=== PATIENT | female | born 1955 | race Caucasian/White ===

== ENCOUNTER 2021-05-24 07:00 | Outpatient (CLI) | payer BC ==
[2021-05-24 10:15] LABS: Hemoglobin 12.3 g/dL (12.0-15.5); Mean Corpuscular HGB CONC 32.3 g/dL (32.0-36.0); Mean Corpuscular Hemoglobin 30.4 pg (27.0-33.0); Mean Corpuscular Volume 94.1 fl (81.6-98.3); Mean Platelet Volume 9.5 fl (7.4-10.4); Platelet Count 229 10x3/uL (150-450); RBC Distribution Width 14.4 % (11.5-14.5); Red Blood Cell (RBC) Count 4.05 10x6/uL (3.90-5.03); White Blood Cell (WBC) Count 8.2 10x3/uL (3.5-10.5)
[2021-05-24 10:16] LABS: MDiff Complete? YES
[2021-05-24 10:17] LABS: ALT (SGPT) 49 U/L (8-55); AST (SGOT) 29 U/L (5-34); Albumin 4.4 g/dL (3.4-4.8); Anion Gap 16 mmol/L (10-20); BUN (Urea Nitrogen) 15 mg/dL (9.8-20.1); Bilirubin, Direct 0.1 mg/dL (0.1-0.3); Bilirubin, Total 0.4 mg/dL (0.2-1.2); Calc. Creatinine Clearance 0 mL/min (70-130); Carbon Dioxide 23 mmol/L (23-31); Chloride 106 mmol/L (98-107); Glucose 93 mg/dL (80-115); Potassium 4.5 mmol/L (3.5-5.1); Protein, Total 7.5 g/dL (5.8-8.1); Sodium 140 mmol/L (136-145)
[2021-05-24 10:20] LABS: Eosinophils 11 % (0-10); Lymphocytes 37 % (21-51); Monocytes 3 % (0-10); Neutrophil 48 % (42-75); Reactive Lymphocytes 1 % (0-10)
[2021-05-24 10:22] LABS: Platelet Morphology Comment Appears Adequate; RBC Morphology Normal
[2021-05-24 11:34] LABS: Calcium 9.8 mg/dL (7.8-10.44)
[2021-05-24 11:36] LABS: Alkaline Phosphatase 110 U/L (40-110)
== END 2021-05-24 07:01 | disposition home or self-care (01) ==
LOC: LABBT 07:00
PROVIDERS: ATTEND Surgery
DX: Z01.812 Encounter for preprocedural laboratory examination (principal); K80.20 Calculus of gallbladder without cholecystitis without obstruction
CPT/HCPCS: 80048; 80076; 85025

== ENCOUNTER 2021-05-27 09:48 | Day surgery (SDC) | payer BC ==
[2021-05-26 15:15] VITALS: BMI 27.6
[2021-05-27] MEDS ORDERED: Lidocaine 1% w/Epinephrine 1:100K 20 ML VIAL ONE (10:31)
[2021-05-27] MEDS ORDERED: Bupivacaine 0.25% HCL 30 ML VIAL ONE (10:31)
[2021-05-27] MEDS ORDERED: Fentanyl 100 MCG/2 ML VIAL ONE ×2 (11:28→13:51)
[2021-05-27] MEDS ORDERED: Dexamethasone 20 MG/5 ML VIAL ONE (12:19)
[2021-05-27] MEDS ORDERED: Rocuronium Bromide 10 MG/ML (10ML VIAL) ONE (12:19)
[2021-05-27] MEDS ORDERED: Ondansetron PF 4 MG/2 ML Vial ONE (12:19)
[2021-05-27] MEDS ORDERED: Glycopyrrolate 0.2 MG/ML 5 ML SYRINGE ONE (12:19)
[2021-05-27] MEDS ORDERED: PROPOFOL 200 MG/20 ML VIAL ONE (12:19)
[2021-05-27] MEDS ORDERED: Lidocaine 1% PF 5 ML VIAL ONE (12:19)
[2021-05-27] MEDS ORDERED: Promethazine HCl 25 MG/ML VIAL ONE (13:51)
== END 2021-05-27 15:44 | disposition home or self-care (01) ==
LOC: SDC 09:48
PROVIDERS: ATTEND Surgery
PROC: 0FT44ZZ Resection of Gallbladder, Percutaneous Endoscopic Approach (ICD-10-PCS; principal; 2021-05-27)
DX: K80.10 Calculus of gallbladder with chronic cholecystitis without obstruction (principal); E78.00 Pure hypercholesterolemia, unspecified; I10 Essential (primary) hypertension; E07.9 Disorder of thyroid, unspecified; G43.909 Migraine, unspecified, not intractable, without status migrainosus; D53.9 Nutritional anemia, unspecified; Z79.899 Other long term (current) drug therapy; Z91.013 Allergy to seafood; Z91.030 Bee allergy status
CPT/HCPCS: 88304; J0690; J1100; J2405; J2550; J2704; J3010; S0020